=== PATIENT | female | born 1975 | race Two or more races ===

== ENCOUNTER 2024-02-15 14:43 | Outpatient (CLI) | payer OTHER ==
[2024-02-15 16:08] LABS: % SATURACION 22.1 % (15-50); FERRITIN 40.7 NG/ML (8-252)
[2024-02-16 13:35] LABS: FOLIC ACID > 20.00 ng/ml (4.78-20)
== END 2024-02-15 23:00 | disposition home or self-care (01) ==
LOC: LAB 14:43
PROVIDERS: ATTEND Internal Medicine Hematology & Oncology
DX: D50.8 Other iron deficiency anemias (principal)

== ENCOUNTER 2024-02-24 08:37 | Outpatient (CLI) | payer OTHER | END 2024-02-24 08:43 | disposition home or self-care (01) | LOC: NUCLEAR 08:37 | PROVIDERS: ATTEND Internal Medicine Hematology & Oncology | DX: I65.22 Occlusion and stenosis of left carotid artery (principal); D68.61 Antiphospholipid syndrome; G46.1 Anterior cerebral artery syndrome; E72.12 Methylenetetrahydrofolate reductase deficiency ==

== ENCOUNTER 2024-11-18 06:52 | Outpatient (CLI) | payer OTHER ==
[2024-11-18 07:26] LABS: HEMATOCRIT 37.9 % (36.0-45.00); HEMOGLOBIN 12.4 g/dL (12.0-15.00); MEAN CELL VOLUME 87.4 fL (80.00-100.00); MEAN CORPUSCULAR HEMOGLOBIN 28.7 pg (27.00-32.0); MEAN CORPUSCULAR HGB CONC 32.8 g/dl (32.0-36.0); PLATELET COUNT 205 K/uL (150-450); RED BLOOD COUNT 4.34 M/uL (4.00-6.00); RED CELL DISTRIBUTION WIDTH 12.9 % (11.5-14.5)
[2024-11-18 08:29] LABS: ALBUMIN 3.8 gm/dL (3.4-5.0); BILIRUBIN TOTAL 0.43 mg/dL (0.3-1.2); CALCIUM 8.9 mg/dL (8.5-10.1); CREATININE SERUM 0.79 mg/dL (0.55-1.02); FERRITIN 21.3 NG/ML (8-252); GFR 77.03; GLOBULINA 3.8 G/DL (2.4-3.5); POTASSIUM 4.14 mEq/L (3.5-5.1); TOTAL PROTEIN 7.6 gm/dL (6.4-8.2)
[2024-11-18 08:46] LABS: MANUAL PLATELET COUNT 282
[2024-11-18 08:47] LABS: PLATELET ESTIMATE NORMAL (NORMAL)
[2024-11-18 11:52] LABS: FOLIC ACID > 20.00 ng/ml (4.78-20)
== END 2024-11-18 07:09 | disposition home or self-care (01) ==
LOC: LAB 06:52
PROVIDERS: ATTEND Internal Medicine Hematology & Oncology
DX: D68.61 Antiphospholipid syndrome (principal); G46.1 Anterior cerebral artery syndrome; G45.3 Amaurosis fugax; E72.12 Methylenetetrahydrofolate reductase deficiency; E72.11 Homocystinuria; I65.22 Occlusion and stenosis of left carotid artery; D50.8 Other iron deficiency anemias; R79.9 Abnormal finding of blood chemistry, unspecified; R74.02 Elevation of levels of lactic acid dehydrogenase [LDH]; I10 Essential (primary) hypertension

== ENCOUNTER 2024-12-16 07:03 | Outpatient (CLI) | payer OTHER ==
[2024-12-16 08:03] LABS: HEMATOCRIT 36.5 % (36.0-45.00); HEMOGLOBIN 12.1 g/dL (12.0-15.00); MEAN CORPUSCULAR HEMOGLOBIN 28.9 pg (27.00-32.0); MEAN CORPUSCULAR HGB CONC 33.2 g/dl (32.0-36.0); PLATELET COUNT 208 K/uL (150-450); RED BLOOD COUNT 4.19 M/uL (4.00-6.00); RED CELL DISTRIBUTION WIDTH 13.4 % (11.5-14.5)
[2024-12-16 08:15] LABS: ERYTHROCYTE SEDIMENTATION RATE 13 mm/hr
[2024-12-16 09:15] LABS: ALBUMIN 3.6 gm/dL (3.4-5.0); ALKALINE PHOSPHATASE 45 U/L (50-136); ALT/SGPT 24 U/L (12-78); ANION GAP 6 (10.0-20.0); AST/SGOT 16 U/L (15-37); BILIRUBIN TOTAL 0.43 mg/dL (0.3-1.2); BLOOD UREA NITROGEN 16 mg/dL (7-18); BUN CREA RATIO 22 (7.0-25.0); CARBON DIOXIDE 29 mEq/L (21-32); CHLORIDE 108 mmol/L (98-107); CHOL HDL RATIO 1.9 (0-5.0); CHOLESTEROL 148 mg/dL (0-200); CREATININE SERUM 0.72 mg/dL (0.55-1.02); GFR 85.74; GLOBULINA 3.7 G/DL (2.4-3.5); GLUCOSE FASTING 83 mg/dL (65-100); HDL 80 mg/dl (40-60); LDL 58 mg/dl (0-130); OSMOLALITY SERUM 278 MOSM/KG (275-295); POTASSIUM 4.36 mEq/L (3.5-5.1); SODIUM 139 mmol/L (136-145); T4 FREE 0.94 NG/ML (0.76-1.46); TOTAL PROTEIN 7.3 gm/dL (6.4-8.2); TRIGLYCERIDES 52 mg/dL (0-150); VLDL 10 (0-39)
[2024-12-16 09:17] LABS: C-REACTIVE PROTEIN < 0.29 MG/DL (0.00-0.29)
== END 2024-12-16 07:04 | disposition home or self-care (01) ==
LOC: LAB 07:03
PROVIDERS: ATTEND Neuromusculoskeletal Medicine & OMM
DX: E03.9 Hypothyroidism, unspecified (principal); G45.3 Amaurosis fugax; E78.00 Pure hypercholesterolemia, unspecified; E78.1 Pure hyperglyceridemia

== ENCOUNTER 2025-08-14 07:13 | Outpatient (CLI) | payer OTHER ==
[2025-08-14 08:37] LABS: BASO % 1.0 % (0.1-1.2); EOS # 0.10 (0.04-0.54); EOS % 1.9 % (0.7-7.0); LYMPH # 1.40 (1.18-3.74); LYMPH % 26.6 % (19.3-53.1); MEAN PLATELET VOLUME 10.20 fl (9.4-12.4); MONO # 0.48 (0.24-0.82); MONO % 9.1 % (4.7-12.5); NEUT # 3.22 (1.56-6.13); NEUT % 61.2 % (34.0-71.1); RED CELL DISTRIBUTION WIDTH 12.1 % (11.6-14.4)
[2025-08-14 08:39] LABS: URINE APPEARANCE Clear; URINE BACTERIA 161.9 uL (0.0-1933); URINE BILIRRUBIN Negative (NEGATIVE); URINE BLOOD Trace; URINE COLOR Yellow; URINE EPITHELIAL CELLS 5.3 uL (0.0-38.8); URINE GLUCOSE Negative (NEGATIVE); URINE KETONE Negative (NEGATIVE); URINE LEUKOCYTE Negative; URINE NITRATE Negative; URINE PROTEIN Negative (NEGATIVE); URINE RBC 14.8 uL (0.0-20.8); URINE UROBILINOGEN 0.2 E.U./dl; URINE WBC 2.1 uL (0.0-23.2)
[2025-08-14 08:46] LABS: ERYTHROCYTE SEDIMENTATION RATE 18 mm/hr (0-20)
[2025-08-14 09:07] LABS: GAMMA GLUTAMIL TRANSFERASE 20 U/L (5-55)
[2025-08-14 09:10] LABS: URINE CAST 0.00 uL (0.0-1.40)
[2025-08-14 09:15] LABS: % SATURACION 60.50 % (15-50); ALT/SGPT 29 U/L (12-78); AST/SGOT 22 U/L (15-37); BILIRUBIN TOTAL 0.74 mg/dL (0.3-1.2); BUN CREA RATIO 19 (7.0-25.0); CHOL HDL RATIO 1.7 (0-5.0); CREATININE SERUM 0.72 mg/dL (0.55-1.02); FE 207.0 ug/dl (50-170); GFR 85.74; GLOBULINA 3.8 G/DL (2.4-3.5); GLUCOSE FASTING 80 mg/dL (65-100); HDL 95 mg/dl (40-60); LDH 169 U/L (84-246); LDL 46 mg/dl (0-130); OSMOLALITY SERUM 275 MOSM/KG (275-295); TSH 2.230 uIU/mL (0.358-3.74); VLDL 18 (0-39)
[2025-08-14 12:39] LABS: FOLIC ACID > 20.00 ng/ml (4.78-20); VITAMIN D3 25 HYDROXY 43.37 ng/ml (30-120)
[2025-08-15 10:35] LABS: CA 125 15.2 U/mL (0.0-38.1); ESTRADIOL SERUM 204.0 pg/mL (.); TRANSFERIN 279.0 mg/dL (192-364)
[2025-08-15 11:21] LABS: HOMOCYSTEINE 7.3 umol/L (0.0-14.5)
[2025-08-15 12:08] LABS: ob NEGATIVE (NEGATIVE)
== END 2025-08-14 07:26 | disposition home or self-care (01) ==
LOC: LAB 07:13
PROVIDERS: ATTEND Internal Medicine Hematology & Oncology
DX: I63.9 Cerebral infarction, unspecified (principal); G89.3 Neoplasm related pain (acute) (chronic); D50.8 Other iron deficiency anemias; E78.5 Hyperlipidemia, unspecified; E78.2 Mixed hyperlipidemia; N91.1 Secondary amenorrhea; Z12.11 Encounter for screening for malignant neoplasm of colon; E03.9 Hypothyroidism, unspecified; N30.00 Acute cystitis without hematuria; N39.0 Urinary tract infection, site not specified; E55.9 Vitamin D deficiency, unspecified; R00.2 Palpitations; I11.9 Hypertensive heart disease without heart failure; E11.9 Type 2 diabetes mellitus without complications; D68.61 Antiphospholipid syndrome; G46.1 Anterior cerebral artery syndrome; G45.3 Amaurosis fugax; I65.22 Occlusion and stenosis of left carotid artery; R79.9 Abnormal finding of blood chemistry, unspecified; I10 Essential (primary) hypertension; R74.02 Elevation of levels of lactic acid dehydrogenase [LDH]; K76.89 Other specified diseases of liver; R74.8 Abnormal levels of other serum enzymes; R70.0 Elevated erythrocyte sedimentation rate